=== PATIENT | female | born 1965 | race African-American/Black ===

== ENCOUNTER 2016-12-24 19:23 | Emergency (ER) | payer BC ==
[2016-12-24] MEDS ORDERED: Dexamethasone 20 MG/5 ML VIAL ONE (19:57)
== END 2016-12-24 20:17 | disposition home or self-care (01) ==
LOC: NAV ERS 19:23
DX: M54.5 Low back pain (principal); E11.9 Type 2 diabetes mellitus without complications; I10 Essential (primary) hypertension; J45.909 Unspecified asthma, uncomplicated; Z79.4 Long term (current) use of insulin; Z79.899 Other long term (current) drug therapy
CPT/HCPCS: J1100

== ENCOUNTER 2024-03-23 11:42 | Emergency (ER) | payer BC ==
[2024-03-23] MEDS ORDERED: methylPREDNISolone Acetate 40 mg/ml Vial ONE ×2 (12:08→12:11)
== END 2024-03-23 12:58 | disposition home or self-care (01) ==
LOC: NAV ERS 11:42
DX: G57.92 Unspecified mononeuropathy of left lower limb (principal); E11.9 Type 2 diabetes mellitus without complications; I10 Essential (primary) hypertension; Z79.4 Long term (current) use of insulin
CPT/HCPCS: 96372; 99283; J1030